=== PATIENT | male | born 1970 | race Caucasian/White ===

== ENCOUNTER 2019-04-01 07:42 | Day surgery (SDC) | payer OTHER ==
[2019-03-25 13:39] VITALS: BMI 23.6
[~2019-04-01 07:42] MED LIST: LACTATED RINGERS 1,000 ML IV SCH
[2019-04-01 08:10] VITALS: RESP 16; TEMP 97.1
[2019-04-01 08:12] LABS: Glucose,Whole Blood 95 mg/dL (75-99)
[2019-04-01] MEDS ORDERED: PROPOFOL 10 MG/ML 20 ML VIAL IV ONE (08:13)
[2019-04-01] MEDS ORDERED: MIDAZOLAM 2 MG/2 ML VIAL ONE (08:13)
[2019-04-01] MEDS ORDERED: fentaNYL (PF) 50 MCG/ML 2 ML AMP ONE (08:13)
--- NOTE | 2019-04-01 09:23 | P.PCN ---
Date of Procedure: 04/01/19 Description of Procedure: BRIEF HISTORY: Patient is a 49-year-old male with a known history of Crohn's disease of the small enlarged bowel. Diagnosed in 2008 patient was previously on Remicade therapy from [id number]. Last colonoscopy in 2016. PROCEDURE PERFORMED: Colonoscopy with biopsies. PREOPERATIVE DIAGNOSIS: Crohn's disease, last colonoscopy 2015. ESTIMATED BLOOD LOSS: Minimal. IV sedation per Anesthesia. PROCEDURE: After informed consent was obtained, the patient, was brought into the endoscopy unit. IV sedation was administered by Anesthesia under continuous monitoring. Digital rectal examination was normal. Initially the Olympus CF-190 flexible video colonoscope was then inserted in the rectum, gradually advanced into the cecum without any difficulty. Careful examination was performed as the scope was gradually being withdrawn. Ileocecal valve and the appendiceal orifice were visualized and appeared normal. Prep was fair with areas of liquid and solid stool. Mucosa of the cecum, ascending colon, transverse colon, descending colon, sigmoid colon, and rectum appeared grossly normal. The colon was somewhat redundant. There were some pseudopolyps noted in the cecum and the rectum. 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 Retroflexion was performed in the rectum and no lesions were seen. Random biopsies taken of the right colon, transverse colon, descending colon and rectum. The patient tolerated the procedure well. IMPRESSION: A few pseudopolyps noted in the cecum and rectum. Stricturing of the IC valve/terminal ileum prohibiting intubation of the terminal ileum, however visualized portion did appear it appeared erythematous/inflamed. Moderately active Crohn's disease. Random biopsies taken of the colon as described. Fair prep. RECOMMENDATIONS: Findings of this examination were discussed with the patient. Okay to resume diet and medications. Follow-up in gastroenterology clinic for results of pathology. Discuss escalation of medical therapy given stricturing disease.
[2019-04-01 09:28] VITALS: BP 120/75; PULSE 66
== END 2019-04-01 09:50 | disposition home or self-care (01) ==
LOC: ORWHC2ENDO 07:42
PROVIDERS: ATTEND Internal Medicine
DX: K52.9 Noninfective gastroenteritis and colitis, unspecified (principal); K50.90 Crohn's disease, unspecified, without complications; K56.699 Other intestinal obstruction unspecified as to partial versus complete obstruction; K63.89 Other specified diseases of intestine; F17.210 Nicotine dependence, cigarettes, uncomplicated; Z86.69 Personal history of other diseases of the nervous system and sense organs; Z79.899 Other long term (current) drug therapy; Z79.52 Long term (current) use of systemic steroids; Z98.890 Other specified postprocedural states; Z83.79 Family history of other diseases of the digestive system
CPT/HCPCS: 88305; 45380; J2250; J3010; J2704

== ENCOUNTER → 2020-08-11 | Outpatient (CLI) | payer OTHER ==
[2020-08-11 23:33] LABS: Basophils # (A) 0.06 X 10*3/uL (0.00-0.10); Basophils % (A) 0.7 %; Eosinophils # (A) 0.08 X 10*3/uL (0.04-0.35); HCT 39.5 % (39.6-50.0); HGB 11.7 g/dL (13.0-17.0); Lymphocytes # (A) 2.17 X 10*3/uL (0.90-5.00); Lymphocytes % (A) 26.2 %; MCH 28.3 pg (27.0-32.0); MCHC 29.6 g/dL (32.0-37.0); MCV 95.6 fL (80.0-97.0); Mean Platelet Volume 9.4 fL (9.5-12.2); Monocytes # (A) 0.49 X 10*3/uL (0.20-1.00); Monocytes % (A) 5.9 %; Neutrophils # (A) 5.42 X 10*3/uL (1.80-7.70); Neutrophils % (A) 65.5 %; Platelet Count 621 X 10*3/uL (140-440); RBC 4.13 X 10*6/uL (4.40-5.60); RDW 14.2 % (11.5-14.5); WBC 8.28 X 10*3/uL (4.50-10.00)
[2020-08-12 01:49] LABS: Gliadin AB IgA, Deaminated NEGATIVE (NEGATIVE); Gliadin AB IgA, Unit <0.2 U/mL; Gliadin AB IgG, Deaminated NEGATIVE (NEGATIVE)
[2020-08-12 01:56] LABS: Erythrocyte Sedimentation Rate 30 mm/Hr (0-20)
[2020-08-12 07:26] LABS: African American GFR (CKD) 113.4 (60.0-200.0); Albumin 3.6 g/dL (3.80-4.90); Albumin/Globulin Ratio 1.64 (1.60-3.17); Anion Gap 11.5 mmol/L (4.00-12.00); BUN/Creat Ratio 13.33 Ratio (12.00-20.00); C Reactive Protein 2.8 mg/dL (0.0-0.8); Calcium 8.9 mg/dL (8.7-10.3); Carbon Dioxide 20.5 mmol/L (21.6-31.8); Globulin 2.2 g/dL (1.6-3.3); Non-African American GFR(CKD) 97.9 (60.0-200.0); Potassium 4.4 mmol/L (3.5-5.5); Total Bilirubin 0.1 mg/dL (0.3-1.2); Total Protein 5.8 g/dL (6.2-8.2)
[2020-08-12 07:32] LABS: Hepatitis A Antibody IgM Non-Reactive (Non-Reactive); Hepatitis B Core IgM Non-Reactive (Non-Reactive); Hepatitis B Surface Antigen Non-Reactive (Non-Reactive); Hepatitis C IgG Antibody Non-Reactive (Non-Reactive)
== END | disposition home or self-care (01) ==
LOC: LABWHC1 14:35
PROVIDERS: ATTEND Physician Assistant
DX: K50.80 Crohn's disease of both small and large intestine without complications (principal); R19.7 Diarrhea, unspecified
CPT/HCPCS: 36415; 80053; 80074; 83516; 84443; 85025; 85652; 86140; 86480